=== PATIENT | male | born 1980 | race African-American/Black ===

== ENCOUNTER 2018-05-19 12:07 | Emergency (ER) | payer OTHER ==
[~2018-05-19] VITALS: Ht 180.3 cm; Wt 63.8 kg
[2018-05-19 12:23] VITALS: BP 120/73
[2018-05-19] MEDS ORDERED: CYCLOBENZAPRINE 10 MG TABLET ONE (12:44)
[2018-05-19] MEDS ORDERED: IBUPROFEN 200 MG TABLET ONE (12:44)
[2018-05-19] MEDS ORDERED: IBUPROFEN 200 MG TABLET PO ONE (13:00)
[2018-05-19] MEDS ORDERED: CYCLOBENZAPRINE 10 MG TABLET PO ONE (13:00)
== END 2018-05-19 14:05 | disposition home or self-care (01) ==
LOC: ED 13:59
DX: S33.5XXA Sprain of ligaments of lumbar spine, initial encounter (principal); S23.3XXA Sprain of ligaments of thoracic spine, initial encounter; V49.49XA Driver injured in collision with other motor vehicles in traffic accident, initial encounter; Y93.89 Activity, other specified; Y92.89 Other specified places as the place of occurrence of the external cause; Y99.8 Other external cause status
CPT/HCPCS: 72072; 72110; 99284